=== PATIENT | male | born 1975 | race African-American/Black ===

== ENCOUNTER 2017-09-01 13:49 | Emergency (ER) | payer MEDICARE ==
[2017-09-01 14:23] LABS: #Eosinphils 0.1 thou/uL (0.0-0.7); #Lymphocytes 0.9 thou/uL (1.20-3.40); #Monocytes 0.5 thou/uL (0.11-0.59); #Neutrophils 11.6 thou/uL (1.40-6.50); %Basophils 0.3 % (0.0-1.0); %Eosinophils 0.6 % (0.0-10.0); %Lymphocytes 7.1 % (21.0-51.0); %Monocytes 3.7 % (0.0-10.0); Hematocrit 42.6 % (42.0-52.0); Mean Platelet Volume 7.2 fL (7.4-10.4); White Blood Cell (WBC) Count 13.2 thou/uL (4.8-10.8)
[2017-09-01 14:50] LABS: Troponin I Less than 0.010 ng/mL (< 0.028)
[2017-09-01 14:53] LABS: ALT (SGPT) 16 U/L (8-55); AST (SGOT) 32 U/L (5-34); Alkaline Phosphatase 132 U/L (40-150); Anion Gap 17 mmol/L (10-20); BUN (Urea Nitrogen) 11 mg/dL (8.9-20.6); Bilirubin, Total 0.5 mg/dL (0.2-1.2); Calc. Creatinine Clearance 0 mL/min (70-130); Calcium 10.1 mg/dL (7.8-10.44); Carbon Dioxide 18 mmol/L (22-29); Chloride 103 mmol/L (98-107); Estimated GFR-MDRD 84; Globulin 5.2 g/dL (2.4-3.5); Protein, Total 9.6 g/dL (6.0-8.3)
--- NOTE | 2017-09-01 15:59 | RAD ---
AP VIEW CHEST: HISTORY: Cough. COMPARISON: 03/21/2014 TECHNIQUE: AP view chest obtained on 09/01/2017. FINDINGS: AP view chest demonstrates extensive lung parenchymal scarring with volume loss in the upper lobes an d upward migration of the hilar regions due to the lung parenchymal scarring in the upper lobes. Thi s may represent a possible inflammatory process and infection, including possibly tuberculosis or aty pical microbacteria. Areas of lung parenchymal in the upper lobes have undergone further cavitary and fibrotic changes, wh en compared to the previous exam from 2013. They have not significantly changed when compared to the previous radiograph of the chest from 12/16/2016. IMPRESSION: Lung parenchymal fibrotic changes, compatible with extensive scarring and upper lobe volume loss. No evidence of acute air space opacities seen. POS: [facility]
[2017-09-01] MEDS ORDERED: Lorazepam 2 MG/ML VIAL ONE (17:18)
--- NOTE | 2017-09-01 18:47 | CT ---
CT ANGIOGRAM CHEST INCLUDING 3D RENDERIN09/01/17 HISTORY: 41-year-old male with chest pain and cough. COMPARISON: 04/10/17. Again noted is very extensive bilateral upper lobe chronic lung changes with volume loss and cavity f ormation including some soft tissue density within several cavities bilaterally, but overall appearan ce is stable. There is no significant CT evidence for acute pulmonary embolism. Blood flow into the u pper lung zones bilaterally is decreased but stable from the extensive chronic lung change. No signi ficant acute process in the abdomen. No pleural effusion or pericardial effusion. IMPRESSION: No significant CT evidence for acute pulmonary embolism. Very severe chronic scarring and bullous mathew nges and cavity formation in both right and left upper lobes but overall stable from the prior study. No evidence for aortic aneurysm or dissection. No significant acute process. POS: [facility]
== END 2017-09-01 19:28 | disposition home or self-care (01) ==
LOC: ERS 13:49
DX: J18.9 Pneumonia, unspecified organism (principal); J45.909 Unspecified asthma, uncomplicated; F41.9 Anxiety disorder, unspecified; Z79.899 Other long term (current) drug therapy
CPT/HCPCS: 71010; 71275; 80053; 82553; 84484; 85025; 85379; 93005; 94640; 96361; 96374; J2060; J7620

== ENCOUNTER 2017-09-08 10:29 | Emergency (ER) | payer MEDICARE ==
--- NOTE | 2017-09-08 11:37 | RAD ---
PA AND LATERAL VIEWS CHEST: HISTORY: Cough. FINDINGS/IMPRESSION: Comparison is made with the exam of 09/01/2017. The heart size is stable. Chronic changes in the lung callaway are again seen bilaterally. Cavitary l esions and intracavitary mass in the left upper lobe are again noted. No large pleural effusions are identified. POS: [facility]
[2017-09-08 12:00] LABS: #Lymphocytes 0.8 thou/uL (1.20-3.40); #Monocytes 0.9 thou/uL (0.11-0.59); #Neutrophils 6.8 thou/uL (1.40-6.50); %Basophils 0.4 % (0.0-1.0); %Eosinophils 0.4 % (0.0-10.0); %Lymphocytes 9.8 % (21.0-51.0); %Monocytes 10.5 % (0.0-10.0); %Neutrophils 79.1 % (42.0-75.0); Hemoglobin 14.4 g/dL (14.0-18.0); Mean Corpuscular HGB CONC 34.3 g/dL (32.0-36.0); Mean Corpuscular Hemoglobin 26.5 pg (27.0-31.0); Mean Corpuscular Volume 77.3 fl (80.0-94.0); Mean Platelet Volume 7.6 fL (7.4-10.4); Platelet Count 403 thou/uL (130-400); RBC Distribution Width 14.7 % (11.5-14.5); Red Blood Cell (RBC) Count 5.43 mill/uL (4.70-6.10); White Blood Cell (WBC) Count 8.6 thou/uL (4.8-10.8)
[2017-09-08 12:23] LABS: ALT (SGPT) 26 U/L (8-55); AST (SGOT) 37 U/L (5-34); Albumin 4.1 g/dL (3.5-5.0); Alkaline Phosphatase 121 U/L (40-150); Anion Gap 16 mmol/L (10-20); BUN (Urea Nitrogen) 11 mg/dL (8.9-20.6); Bilirubin, Total 0.3 mg/dL (0.2-1.2); Calc. Creatinine Clearance 0 mL/min (70-130); Calcium 10.1 mg/dL (7.8-10.44); Carbon Dioxide 22 mmol/L (22-29); Chloride 98 mmol/L (98-107); Estimated GFR-MDRD Greater than 90; Globulin 4.8 g/dL (2.4-3.5); Glucose 131 mg/dL (70-105); Potassium 3.4 mmol/L (3.5-5.1); Protein, Total 8.9 g/dL (6.0-8.3); Sodium 133 mmol/L (136-145)
== END 2017-09-08 13:25 | disposition home or self-care (01) ==
LOC: ERS 10:29
DX: J10.1 Influenza due to other identified influenza virus with other respiratory manifestations (principal); J45.909 Unspecified asthma, uncomplicated; D86.9 Sarcoidosis, unspecified; F41.9 Anxiety disorder, unspecified; Z79.52 Long term (current) use of systemic steroids
CPT/HCPCS: 71020; 80053; 85025; 96360

== ENCOUNTER 2017-10-04 13:10 | Emergency (ER) | payer MEDICARE ==
[2017-10-04 14:21] LABS: Hemoglobin 15.1 g/dL (14.0-18.0); Mean Corpuscular HGB CONC 34.3 g/dL (32.0-36.0); Mean Corpuscular Hemoglobin 27.2 pg (27.0-31.0); Mean Corpuscular Volume 79.4 fl (80.0-94.0); Mean Platelet Volume 8.1 fL (7.4-10.4); Platelet Count 392 thou/uL (130-400); RBC Distribution Width 15.9 % (11.5-14.5); Red Blood Cell (RBC) Count 5.53 mill/uL (4.70-6.10); White Blood Cell (WBC) Count 14.2 thou/uL (4.8-10.8)
[2017-10-04 14:34] LABS: Anisocytosis SLIGHT = 6-15 cells (100X) (0-5/hpf); Band 2 % (5-11); Eosinophils 4 % (0-10); Large Platelets SLIGHT; Lymphocytes 1 % (21-51); MDiff Complete? YES; Monocytes 3 % (0-10); Neutrophil 87 % (42-75); PLT Morphology Comment Appears Adequate; Reactive Lymphocytes 1 % (0-10); Target Cells SLIGHT = 2-5 cells (100X) (0-1/hpf)
[2017-10-04 14:38] LABS: ALT (SGPT) 12 U/L (8-55); AST (SGOT) 16 U/L (5-34); Albumin 4.3 g/dL (3.5-5.0); Alkaline Phosphatase 124 U/L (40-150); Anion Gap 17 mmol/L (10-20); BUN (Urea Nitrogen) 10 mg/dL (8.9-20.6); Bilirubin, Total 0.8 mg/dL (0.2-1.2); Calc. Creatinine Clearance 0 mL/min (70-130); Calcium 10.1 mg/dL (7.8-10.44); Carbon Dioxide 21 mmol/L (22-29); Chloride 99 mmol/L (98-107); Estimated GFR-MDRD Greater than 90; Globulin 4.2 g/dL (2.4-3.5); Glucose 132 mg/dL (70-105); Potassium 4.1 mmol/L (3.5-5.1); Protein, Total 8.5 g/dL (6.0-8.3); Sodium 133 mmol/L (136-145)
[2017-10-04 14:44] LABS: CKMB 0.4 ng/mL (0-6.6); Troponin I Less than 0.010 ng/mL (< 0.028)
--- NOTE | 2017-10-04 14:50 | RAD ---
CHEST ONE VIEWS: History: Palpitations. Comparison: 09-08-17 FINDINGS: Cardiac silhouette is magnified by projection. Left pleural fluid layers more than on the previous st udy due to upright positioning. Extensive scarring and bullous formation at the upper lobes is again demonstrated. Mediastinum is midline. monitoring analyst leads overlie the chest. IMPRESSION: 1. Extensive parenchymal scarring, left pleural fluid, and other findings are stable. POS: [facility]
== END 2017-10-04 15:41 | disposition home or self-care (01) ==
LOC: ERS 13:10
DX: F41.9 Anxiety disorder, unspecified (principal); D86.9 Sarcoidosis, unspecified; R00.2 Palpitations; J45.909 Unspecified asthma, uncomplicated; Z79.52 Long term (current) use of systemic steroids
CPT/HCPCS: 71045; 80053; 82553; 84484; 85025; 93005; 96360

== ENCOUNTER 2017-11-05 20:15 | Inpatient (IN) | payer MEDICARE ==
[~2017-11-05 20:15] MED LIST: ISOVUE-370 76%-LOCM 1 ML ONE
--- NOTE | 2017-11-05 23:06 | RAD ---
PORTABLE CHEST: Date: 11/05/17 HISTORY: Cough. COMPARISON: 10/04/17. FINDINGS: The parenchymal stranding and scarring in the upper lungs radiating from the suprahilar regions bilat erally appear stable. Prior CT chest from 09/01/17 described scarring and bullous changes with cavita ry formation in both upper lobes. Evidence of small bilateral effusions, similar to the prior exam. IMPRESSION: Bilateral upper lobe opacities are seen, consistent with the chronic changes previously described. Th ere may be increased density surrounding the right upper lung opacity which could represent a superim posed inflammatory infiltrate. Suggest short-term follow-up with treatment. POS: [facility]
[2017-11-05 23:22] LABS: Bilirubin Negative (Negative); Blood, Urine Negative (Negative); Clarity CLEAR (Clear); Glucose, Urine (Dipstick) Negative (Negative); Leukocyte Negative (Negative); Nitrite Negative (Negative); Protein, Urine (Dipstick) Negative (Neg-Trace); Urobilinogen 0.2 mg/dL (0.2-1.0)
[2017-11-05 23:30] LABS: Digoxin Less than 0.15 ng/mL (0.8-2.0)
[2017-11-05 23:31] LABS: Eosinophils 1 % (0-10); Hemoglobin 11.9 g/dL (14.0-18.0); Lymphocytes 10 % (21-51); MDiff Complete? YES; Mean Corpuscular HGB CONC 34.2 g/dL (32.0-36.0); Mean Corpuscular Volume 79.1 fl (80.0-94.0); Mean Platelet Volume 7.7 fL (7.4-10.4); Microcytosis SLIGHT = 6-15 cells (100X) (0-5/hpf); Monocytes 4 % (0-10); Neutrophil 84 % (42-75); PLT Morphology Comment Appears Increased; Platelet Count 428 thou/uL (130-400); RBC Distribution Width 15.3 % (11.5-14.5); Reactive Lymphocytes 1 % (0-10)
[2017-11-05 23:32] LABS: ALT (SGPT) 14 U/L (8-55); AST (SGOT) 16 U/L (5-34); Albumin 3.6 g/dL (3.5-5.0); Alkaline Phosphatase 143 U/L (40-150); Anion Gap 17 mmol/L (10-20); BUN (Urea Nitrogen) 8 mg/dL (8.9-20.6); Bilirubin, Total 1.1 mg/dL (0.2-1.2); CK (CPK) 32 U/L (30-200); Calc. Creatinine Clearance 0 mL/min (70-130); Calcium 9.4 mg/dL (7.8-10.44); Carbon Dioxide 20 mmol/L (22-29); Chloride 100 mmol/L (98-107); Estimated GFR-MDRD Greater than 90; Globulin 4.3 g/dL (2.4-3.5); Glucose 91 mg/dL (70-105); Lipase 4 U/L (8-78); Magnesium 1.8 mg/dL (1.6-2.6); Potassium 3.3 mmol/L (3.5-5.1); Protein, Total 7.9 g/dL (6.0-8.3); Sodium 134 mmol/L (136-145)
[2017-11-05 23:36] LABS: CKMB 0.3 ng/mL (0-6.6); Troponin I Less than 0.010 ng/mL (< 0.028)
[2017-11-05 23:49] LABS: Free T4 (Free Thyroxine) 1.68 ng/dL (0.70-1.48)
[2017-11-06 00:01] LABS: HIV (1/2) Antibody/Antigen Non-Reactive (NonReactive); HIV 1/2 INDEX 0.11 S/CO (<1.00)
[2017-11-06] MEDS ORDERED: Lorazepam 2 MG/ML VIAL ONE (01:13)
[2017-11-06] MEDS ORDERED: Sodium Chloride 0.45% 1,000 ML IV SCH (02:31)
[2017-11-06] MEDS ORDERED: Ondansetron HCl/PF 4 MG/2 ML Vial IVP PRN ×2 (02:31→04:00)
[2017-11-06] MEDS ORDERED: Ondansetron ODT 4 MG TAB SL PRN (02:31)
[2017-11-06] MEDS ORDERED: Lorazepam 2 MG/ML VIAL SLOW IVP PRN (02:32)
[2017-11-06] MEDS ORDERED: Ondansetron ODT 4 MG TAB PO PRN (04:00)
--- NOTE | 2017-11-06 04:25 | PDOC.FPRHP ---
- History of Present Illness Chief Complaint: Congestion, low grade fever, cough History of Present Illness: Pt seen @ 0400 11/06 Pt is 42 yo M with PMH of sarcoidosis who presents with cc of low grade fevers, congestion, productive cough, weakness and recent weight loss. The pt reports the cough, congestion and low grade fevers have been present for the last 2 days and have been progressively worsening. He has tried taking mucinex and flonase w/o relief of symptoms. He had one episode of blood tinged sputum throughout this time. Denies cp, sob, plpeuritic pain, nvdc, arthritis/ arthralgias. Regarding the weight loss and weakness, he preports approx 30 pounds of weight loss over the last 2 months, but on review of clinic records the pt has lost approx 15 lbs. Additionally, pt reports he has always had trouble keeping weight on and was previously on an appetite stimulation medication which was stopped approx 1 month ago. Associates weight loss with chronically low appetite. Regarding the sarcoid, pt sees Dr. Mascorro for management of disease and is on chronic steroids, but reports he has not been taking them over the last month 2/ 2 medication side effects. He had a CT done in August which showed cavitary lesion in the ATUL, and per ER doc, on this admission there was also mention of caivtary lesion on imaging. Quantiferon gold pending, pt on airborne precautions. - Allergies/Adverse Reactions Allergies Allergy/AdvReac Type Severity Reaction Status Date / Time No Known Allergies Allergy Verified 11/06/17 02:46 - Home Medications Medication Instructions Recorded Confirmed Type Albuterol Sulfate [Proair HFA] 1 puff INH Q4HR PRN 11/06/17 11/06/17 History Ipratropium/Albuterol Sulfate 3 ml NEB Q4H PRN 11/06/17 11/06/17 History [Duoneb] Mometasone/Formoterol 100/5 1 puff INH Q4H PRN 11/06/17 11/06/17 History [Dulera 100 Mcg/5 Mcg Inhaler] - History PMHx:sarcoidosis PSHx: skin graft FHx:None Social: Former smoker, no alcohol, no drugs - Vital signs BP: 99/54 HR: 114 RR: 22 Tmax: 98.4 Pox: 92% on RA Wt: 41kg - Physical Exam Constitutional: NAD, awake, alert and oriented HEENT: normocephalic and atraumatic, PERRLA, EOMI, conjunctiva clear, no scleral icterus, TM's clear and intact, grossly normal hearing, MMM, oropharynx clear Neck: supple, trachea midline, no LAD, no thyromegaly Chest: no-tender to palpation Heart: RRR, normal S1/S2, no murmurs/rubs/gallops, pulses present Lungs: CTAB, no respiratory distress, good air movement, no rales/rhonchi, no wheezing, no retractions Abdomen: soft, non-tender, bowel sounds present, no masses/distention Skin: capillary refill <2 seconds FMR H&P: Results - Labs Result Diagrams: 11/06/17 06:07 11/05/17 22:55 Lab results: WBC 17.0 thou/uL (4.8-10.8) H 11/05/17 22:55 Hgb 11.9 g/dL (14.0-18.0) L 11/05/17 22:55 Hct 34.8 % (42.0-52.0) L 11/05/17 22:55 MCV 79.1 fl (80.0-94.0) L 11/05/17 22:55 Plt Count 428 thou/uL (130-400) H 11/05/17 22:55 Sodium 134 mmol/L (136-145) L 11/05/17 22:55 Potassium 3.3 mmol/L (3.5-5.1) L 11/05/17 22:55 Chloride 100 mmol/L (98-107) 11/05/17 22:55 Carbon Dioxide 20 mmol/L (22-29) L 11/05/17 22:55 BUN 8 mg/dL (8.9-20.6) L 11/05/17 22:55 Creatinine 0.90 mg/dL (0.6-1.3) 11/05/17 22:55 Glucose 91 mg/dL (70-105) 11/05/17 22:55 Lactic Acid 0.8 mmol/L (0.5-2.2) 11/05/17 22:55 Calcium 9.4 mg/dL (7.8-10.44) 11/05/17 22:55 Total Bilirubin 1.1 mg/dL (0.2-1.2) 11/05/17 22:55 AST 16 U/L (5-34) 11/05/17 22:55 ALT 14 U/L (8-55) 11/05/17 22:55 Alkaline Phosphatase 143 U/L (40-150) 11/05/17 22:55 Creatine Kinase 32 U/L (30-200) 11/05/17 22:55 CK-MB (CK-2) 0.3 ng/mL (0-6.6) 11/05/17 22:55 B-Natriuretic Peptide Less than 10.0 pg/mL (0-100) 11/05/17 22:56 Serum Total Protein 7.9 g/dL (6.0-8.3) 11/05/17 22:55 Albumin 3.6 g/dL (3.5-5.0) 11/05/17 22:55 Lipase 4 U/L (8-78) L 11/05/17 22:55 Urine Ketones 40 mg/dL (Negative) H 11/05/17 23:18 Urine Blood Negative (Negative) 11/05/17 23:18 Urine Nitrite Negative (Negative) 11/05/17 23:18 Ur Leukocyte Esterase Negative (Negative) 11/05/17 23:18 - EKG Interpretation EKG: sinus tach, rt atrial enlargement FMR H&P: A/P - Problem List (1) Sepsis due to pneumonia Current Visit: Yes Status: Acute Code(s): J18.9 - PNEUMONIA, UNSPECIFIED ORGANISM; A41.9 - SEPSIS, UNSPECIFIED ORGANISM (2) Sarcoidosis Current Visit: Yes Status: Acute Code(s): D86.9 - SARCOIDOSIS, UNSPECIFIED (3) Hypokalemia Current Visit: Yes Status: Acute Code(s): E87.6 - HYPOKALEMIA (4) Leukocytosis Current Visit: No Status: Acute Code(s): D72.829 - ELEVATED WHITE BLOOD CELL COUNT, UNSPECIFIED (5) Pneumonia Current Visit: No Status: Acute Code(s): J18.9 - PNEUMONIA, UNSPECIFIED ORGANISM (6) Cachexia Current Visit: No Status: Chronic Code(s): R64 - CACHEXIA - Plan 1. Sepsis 2/2 PNA vs. TB vs. other infectious etiology: Patient with elevated HR , RR and leukocytosis of 17. CXR shows chronic BL upper lobe opacities with inc density at RUL opacity. In addition, CTA done due to +d-dimer and per ED physician it showed upper lobe cavitation and concern for TB. Final report is pending. Previous CT on 08/2017 showed BL cavity formation at upper lobes, but not sure if this has worsened or not. Given Levaquin and Rocephin in the ED. Will treat as PNA with rocephin and azithromycin as TB is low on the differential. He does have RF including immunosuppression with sarcoidosis and chronic steroids, but denies any recent travel, IV drug use, exposure to TB. Was tested negative for TB in 2014. QuantGold pending. Obtain procalcitonin. 2. Hypokalemia: replenish and monitor. 3. Sarcoidosis: followed by Dr. Mascorro of pulmonology. Cont home inhalers. On chronic steroids but states he hasnt been taking them for the past month. 4. Cachexia: consider re-starting megace as he has lost about 15lbs over the past 2mo. Provide dietary supplementation while in the hospital. 5. Diet: regular 6. PPx: SCDs 7. Code Status: Full Disposition/LOS: stable, >/= 2 days. Symptomatic meds will be provided. FMR H&P: Upper Level - Pertinent history Patient is a 42yo AAM with PMHx of Sarcoidosis who presents with 2d hx of congestion, cough and low grade fevers. Temp as high as 100.1 at home. Productive cough with yellow phlegm and reports occasional hemoptysis. Has been taking mucinex and Flonase at home. States he came to the ED because he was told by his doctors that if he starts coughing and fevering he should go to the ED. Also reports a 30lb wt loss over the past 2mo and was previously on appetite stimulant medication but was told to stop it about 2mo ago. He has hx of dec appetite and looking over at our clinic records he has lost about 15lbs over the past 2mo since stopping med. Denies any shortness of breath, wheezing, chest pain, N/V. Patient is followed by Dr. Mascorro for his sarcoidosis and is on chronic steroids though he states he hasnt been taking them for about 1mo now. - Plan Date/Time: 11/06/17 [id number] Jimmy Gunderson, have evaluated this patient and agree with findings/plan as outlined by internal communications specialist resident. Pertinent changes/additions are listed here. 1. Sepsis 2/2 PNA vs. TB vs. other infectious etiology: Patient with elevated HR , RR and leukocytosis of 17. CXR shows chronic BL upper lobe opacities with inc density at RUL opacity. In addition, CTA done due to +d-dimer and per ED physician it showed upper lobe cavitation and concern for TB. Final report is pending. Previous CT on 08/2017 showed BL cavity formation at upper lobes, but not sure if this has worsened or not. Given Levaquin and Rocephin in the ED. Will treat as PNA with rocephin and azithromycin as TB is low on the differential. He does have RF including immunosuppression with sarcoidosis and chronic steroids, but denies any recent travel, IV drug use, exposure to TB. Was tested negative for TB in 2014. QuantGold pending. Obtain procalcitonin. 2. Hypokalemia: replenish and monitor. 3. Sarcoidosis: followed by Dr. Mascorro of pulmonology. Cont home inhalers. On chronic steroids but states he hasnt been taking them for the past month. 4. Cachexia: consider re-starting megace as he has lost about 15lbs over the past 2mo. Provide dietary supplementation while in the hospital. 5. Diet: regular 6. PPx: SCDs 7. Code Status: Full Attending Addendum - Attending Addendum Date/Time: 11/06/17 152 I personally evaluated the patient and discussed the management with Dr. Segovia and Dr Kearns. The H&P has been reviewed by me and it is repeated by me. I agree with the History, Examination, Assessment and Plan documented above with any addition or exceptions noted below. We are also checking an abdominal CT scan to look for other causes of weight loss such as malignancy, and his thyroid function.
[2017-11-06] MEDS: Sodium Chloride 0.9% 1,000 ML IV SCH ×2 (04:53→14:51)
[2017-11-06 07:01] LABS: T4 9.4 ug/dL (4.87-11.72); Thyroid Stimulating Hormone 0.8511 uIU/mL (0.35-4.94)
[2017-11-06] MEDS ORDERED: Iopamidol 370 76% 75 ML VIAL FS ONE (07:44)
[2017-11-06] MEDS ORDERED: Potassium Chloride 20 MEQ TAB PO SCH (07:45)
[2017-11-06 07:56] LABS: Legionella Urinary Ag Negative (Negative); Strep pneumo Urine Ag NEGATIVE (NEGATIVE)
--- NOTE | 2017-11-06 07:57 | CT ---
PRELIMINARY REPORT/[facility]/EMERGENCY AFTER HOURS PROCEDURE: EXAM: CT Angiography Chest With Intravenous Contrast EXAM DATE/TIME: 11/06/2017 12:02 AM CLINICAL HISTORY: 42 years old, male; Pain and signs and symptoms; Cough; Symptoms not specified; Chest pain; Patient H X: Er 12; Chest pain, cough; Congestion x 1 weeks, reports low grade fever x 2 days. Tachycardic, d-d binu 2.30 TECHNIQUE: Axial computed tomographic angiography images of the chest with intravenous contrast using pulmonary embolism protocol. MIP reconstructed images were created and reviewed. COMPARISON: No relevant prior studies available. FINDINGS: Pulmonary arteries: No evidence of pulmonary embolism. Aorta: No acute findings. No thoracic aortic aneurysm. Lungs: Severe bilateral upper lobe bronchiectasis with multiple large air-filled cavities in the uppe r lobes, some containing some debris and fluid, concerning for superimposed infection. No mass. Pleural space: Unremarkable. No significant effusion. No pneumothorax. Heart: Unremarkable. No cardiomegaly. No significant pericardial effusion. No evidence of RV dysfunct ion. Bones/joints: No acute fracture. No dislocation. Soft tissues: Unremarkable. Lymph nodes: Unremarkable. No enlarged lymph nodes. IMPRESSION: No acute pulmonary embolism. Severe upper lobe bronchiectasis and bilateral upper lobe cavity formati on with debris and fluid suggesting superimposed infection. Differential diagnosis includes cystic fi brosis, TB or other mycobacterial infections, allergic bronchopulmonary aspergillosis, chronic hypersensitivity pneumonitis. Thank you for allowing us to participate in the care of your patient. Dictated and Authenticated by: Zeynep Rizo MD 11/06/2017 12:22 AM Central Time ([place] & [place]) FINAL REPORT CT ANGIOGRAM CHEST WITH CONTRAST: Date: 11/05/17 HISTORY: Chest pain. Cough and congestion. COMPARISON: CT of the chest dated 09/01/17. TECHNIQUE: CT angiogram of the chest performed with intravenous administration of contrast. 3D rendering provide d. FINDINGS/IMPRESSION: The findings and impression are concordant with the preliminary report by [facility]. Within a right upper lobe cavitation is a soft tissue nodule which may represent a mycetoma. Same is true for left upper l obe cavitation. There is dilatation of the pulmonary arterial system suggesting pulmonary arterial hy pertension. There is dilatation of the tracheobronchial system. There is confluence of mildly prominent subcarina l lymph nodes. There is also mild circumferential wall thickening of the esophagus. POS: [facility]
[2017-11-06] MEDS: Famotidine 20 MG TAB PO SCH ×2 (08:05→19:41)
[2017-11-06 11:35] LABS: Anisocytosis SLIGHT = 6-15 cells (100X) (0-5/hpf); Hemoglobin 10.8 g/dL (14.0-18.0); Lymphocytes 4 % (21-51); MDiff Complete? YES; Mean Corpuscular HGB CONC 33.1 g/dL (32.0-36.0); Mean Corpuscular Hemoglobin 26.8 pg (27.0-31.0); Mean Corpuscular Volume 80.9 fl (80.0-94.0); Mean Platelet Volume 8.2 fL (7.4-10.4); Monocytes 3 % (0-10); Neutrophil 93 % (42-75); PLT Morphology Comment Appears Increased; Platelet Count 421 thou/uL (130-400); RBC Distribution Width 15.7 % (11.5-14.5); Red Blood Cell (RBC) Count 4.03 mill/uL (4.70-6.10); Target Cells SLIGHT = 2-5 cells (100X) (0-1/hpf); White Blood Cell (WBC) Count 13.2 thou/uL (4.8-10.8)
--- NOTE | 2017-11-06 14:53 | CT ---
CT ABDOMEN AND PELVIS WITH CONTRAST: Date: 11/06/17 HISTORY: Abdominal pain. Cachexia. Decreased appetite. History of lung disease. FINDINGS: There is small volume free fluid in the pelvis. The gallbladder is unremarkable. There is an abnormal appearance of the spleen with numerous hypodensities through it. Multiple low at tenuation levi hepatis lymph nodes. Aortoiliac contour is nonaneurysmal. IMPRESSION: There are numerous hypodensities of the spleen with multiple hypodense levi hepatis lymph nodes. Fin dings can be seen with splenic microabscesses with a low attenuation adenopathy concerning also for t uberculosis. Adenopathy can also be seen with metastatic disease, as well as lymphoma and celiac spru e. At this point, splenic microabscesses with tuberculosis and tuberculous involvement of levi hepat is lymph nodes and a few small retroperitoneal lymph nodes is felt most likely. Of note, sarcoidosis can have a similar appearance in the spleen. Charisma, the nurse taking care of the patient, was notified of the findings via telephone at 1210 hours . CODE CR. POS: [facility]
[2017-11-06] MEDS: Acetaminophen 325 MG TAB PO PRN (19:41)
--- NOTE | 2017-11-06 19:52 | RAD ---
ADULT BONE SURVEY: History: Cystic lung and splenic disease. Evaluate for infection. FINDINGS: Very aggressive osseous erosions. No lytic lesions or sclerotic lesions of the bones are evident. Sma ll metallic sphere overlies the tibiofibular interspace of the right lower leg on the frontal view. L ateral view is not included. Extensive parenchymal lung disease is better detailed on recent CT chest. IMPRESSION: No acute osseous abnormalities are demonstrated. POS: [facility]
--- NOTE | 2017-11-06 21:48 | CON ---
DATE OF CONSULTATION: 11/06/2017 REASON FOR CONSULTATION: Lung and splenic lesions. HISTORY OF PRESENT ILLNESS: A 42-year-old whom I had seen in 03/2014 when he presented with a history of prior episodes of sinusitis for which he took over- the-counter medication. Basically, he was admitted with altered mental status, tachypnea, hypoxemia which led to eventual intubation. Patient had some bloody drainage from the endotracheal tube. Initial white cell count was 13,000, platelets 394 with 19% bands. ABG with a pH 7.23, pCO2 of 52, and pO2 of 404, bilirubin 0.5. AST and ALT normal. Urinalysis with 300 protein. Creatinine was normal. Hepatitis serology, HIV and RPR were negative. A CT of abdomen and pelvis and chest showed extensive bilateral cavitary lung disease with areas of ground-glass opacity as well. The large cavities were concentrated in the upper lower segments of right and left upper lobes. There was evidence of splenomegaly and numerable areas of hypodensity within the spleen and similar heterogeneous enhancement pattern of the liver. The patient had extensive evaluation with numerous samples from respiratory secretions negative for Mycobacterium tuberculosis including a bronchoscopy specimen. We also submitted testing for various fungal pathogens and all were negative including coccidioides immitis, Histoplasma capsulatum. The Aspergillus serology was positive and he did have elevation in the Fungitell assay which was borderline high. The patient had serum protein electrophoresis which showed positive elevation in the gamma protein with an M-spike of 0.5. The IgG was elevated, IgM was within normal limits. All the vasculitis workup was negative and tuberculosis QuantiFERON test was indeterminate. The patient was discharged with diagnosis of pulmonary hemorrhage, hypotension, leukocytosis and fibrocavitary lung disease, community-acquired pneumonia and the concern for sarcoidosis. In 08/2014, he was readmitted and with wasting syndrome and dyspnea, was discharged on prednisone and antimicrobial therapy. In 03/2015, he came again with exacerbation of his respiratory problems with hyperleukocytosis and was given prednisone again, antimicrobials and discharged. Similar findings in 11/2015 and 11/2016. At this time, he comes in again with a similar presentation with worsening dyspnea, cough with some small amounts of blood and mucoid sputum production. He has had some progressive weight loss as well. Initial findings included a white cell count 17,000, hemoglobin 11, platelets 428, 84% neutrophils. His initial chemistry values with sodium 134, creatinine 0.9. Liver profile normal. Albumin 3.6, globulin 4.3. TSH was 1.01. Urinalysis normal at this time. Repeat a strep pneumo antigen Legionella pneumophila negative and the HIV negative as well. The CT of chest again showed multiple cystic lesions, some bronchiectasis. One of the cavities has what appears to be a fungus ball. There was dilatation of tracheobronchial system, some mildly prominent subcarinal lymph nodes and patient had a CT of the abdomen and pelvis with numerous hypodensities of the spleen and hypodense levi hepatis lymph nodes. Currently, Mr. Ellison is coughing intermittently. He has some headaches. No visual symptoms, sore throat, odynophagia or dysphagia. Moderate dyspnea, no chest pain, no abdominal pain, no genitourinary symptoms, some diarrhea. After taking the contrast for CT scan, no appendicular structure symptoms or neurological symptoms. PAST MEDICAL HISTORY: Sinusitis, cystic lung disease, bronchiectasis, cystic splenic disease, cystic liver disease. PAST SURGICAL HISTORY: Negative except for bronchoscopy. Extensive workup for tuberculosis in 2014, which was all negative including bronchoscopic specimen. His QuantiFERON was indeterminate because patient was immunosuppressed and extensive workup for fungal pathogens is negative except for borderline elevated Aspergillus antigen. ALLERGIES: None. CURRENT MEDICATIONS: Proventil, Tylenol, DuoNeb, azithromycin, ceftriaxone, Pepcid, mometasone, ondansetron. FAMILY HISTORY: One brother committed suicide and one sister who had a splenectomy during for low blood counts reportedly, also history of diabetes and some form of cancer. SOCIAL HISTORY: Used to work for a [employer] company and had smoked in the past, but quit when he got sick in 2014. PHYSICAL EXAMINATION: VITAL SIGNS: T-max 99.6, blood pressure 114/72, pulse 120, respirations 18-24, O2 saturation 95%. SKIN: Shows one area of hyperpigmented scar from a previous skin lesion in the right arm, peripheral IV access. Does not have a Medina catheter and is voiding spontaneously. No lymphadenopathy palpable at this time. HEENT: Ocular movements are conjugate. Sclerae white. Oral cavity normal. NECK: Supple. LUNGS: Lungs are symmetric. Scattered rhonchi and crackles in both lung callaway. HEART: S1, S2, regular rate. No S3 or S4. ABDOMEN: Soft and question of splenomegaly and hepatomegaly. No bladder distention, no tenderness, no distention or ascites. EXTREMITIES: No joint inflammatory activity. Pulses are 1+ in dorsalis pedis. NEUROLOGIC: Cognitive function appears to be intact. LABORATORY DATA: Latest labs, white cell count 13,000, hemoglobin 10, platelets 421 with 92% neutrophils. Other findings as noted above. ASSESSMENT: 1. Restricted growth. 2. Chronic pulmonary cavitary/cystic disease, areas of ground-glass opacities. 3. Splenic and hepatic cystic lesions, multiple. DISCUSSION: The differential diagnosis includes congenital disorder, for example Jimmy Pick's disease which can be associated with this kind of presentation, although usually it will manifest much earlier. Some variants of LOSS CONTROL MANAGER can present later in life. 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 Regarding the possibility of tuberculosis, I believe the case has been worked up properly and that has been effectively ruled out with a very extensive evaluation in 2014. It is unlikely that patient has active tuberculosis causing this chronic illness since 2014 with extensive cavitary disease with older cultures negative from multiple samples including bronchoscopic samples. I do not think it is a fungal illness either in view of the negative findings in the previous work up, although pt does have evidence of fungal colonization of one of the cavities with fungus ball formation. The hypothesis of sarcoidosis has been brought up. This certainly is a very atypical case for Sarcoidosis, with its non-caseous granuloma formation. The extent of lung involvement with cavitation, the multiple cysts in spleen, appear quite atypical for Sarcoidosis and I think that would not be a likely diagnosis. I will order a bone series to see if he has any cystic transformation in the bones as well which can be seen in the Langerhans histiocytosis at least some forms of it. It seems like further establishment of a precise tissue diagnosis would be important instead of empiric treatment. The specific areas of possible biopsy would include the LN in abdomen area, the spleen. The lung would be a harder target in view of risk. Bone marrow can be involved in some of the above possibilities and may be considered depending on bone series results. MTDD
[2017-11-07] MEDS: cefTRIAXone\\ROCEPHIN 1 GM, Syringe 0.4 ML in Sterile Water 9.6 ML SLOW IVP SCH (01:57)
[2017-11-07] MEDS ORDERED: cefTRIAXone\\ROCEPHIN 1 GM in Sodium Chloride 0.9% 100 ML IVPB SCH (02:00)
[2017-11-07] MEDS: Azithromycin 500 MG in Sodium Chloride 0.9% 250 ML 250 ML IVPB SCH (02:05)
[2017-11-07 05:18] LABS: #Eosinphils 0.6 thou/uL (0.0-0.7); #Lymphocytes 1.5 thou/uL (1.20-3.40); #Monocytes 1.2 thou/uL (0.11-0.59); #Neutrophils 6.4 thou/uL (1.40-6.50); %Basophils 0.4 % (0.0-1.0); %Eosinophils 5.9 % (0.0-10.0); %Lymphocytes 15.7 % (21.0-51.0); %Monocytes 12.4 % (0.0-10.0); %Neutrophils 65.6 % (42.0-75.0); Hemoglobin 10.5 g/dL (14.0-18.0); Mean Corpuscular HGB CONC 32.8 g/dL (32.0-36.0); Mean Corpuscular Hemoglobin 25.8 pg (27.0-31.0); Mean Corpuscular Volume 78.6 fl (80.0-94.0); Mean Platelet Volume 7.6 fL (7.4-10.4); Platelet Count 407 thou/uL (130-400); RBC Distribution Width 15.2 % (11.5-14.5); Red Blood Cell (RBC) Count 4.06 mill/uL (4.70-6.10); White Blood Cell (WBC) Count 9.7 thou/uL (4.8-10.8)
[2017-11-07 05:37] LABS: Anion Gap 13 mmol/L (10-20); BUN (Urea Nitrogen) 6 mg/dL (8.9-20.6); Calc. Creatinine Clearance 74 mL/min (70-130); Calcium 9.1 mg/dL (7.8-10.44); Carbon Dioxide 25 mmol/L (22-29); Chloride 104 mmol/L (98-107); Estimated GFR-MDRD Greater than 90; Glucose 97 mg/dL (70-105); Potassium 3.6 mmol/L (3.5-5.1); Sodium 138 mmol/L (136-145)
[2017-11-07] MEDS: Mometasone/Formoterol 120 PUFF INHALER INH PRN (07:51)
[2017-11-07] MEDS: PROVENTIL INHALER 6.7 G (200 INHALATIONS) INH PRN (07:52)
[2017-11-07] MEDS: Sodium Chloride 0.9% 1,000 ML IV SCH (08:43)
[2017-11-07] MEDS: Famotidine 20 MG TAB PO SCH (08:45)
--- NOTE | 2017-11-07 08:53 | PDOC.FM ---
- Subjective Subjective: Patient is still having a cough productive of yellow sputum and had a fever overnight. He reports loose stools that started yesterday that are watery in nature. Denies any abdominal pain, N/V. He denies CP, SOB. - Objective MAR Reviewed: Yes Vital Signs & Weight: Vital Signs (12 hours) Pulse Resp Pulse Ox 11/07/17 07:52 72 16 96 11/07/17 07:51 72 16 96 Weight Admit Weight 41.186 kg Weight 41.186 kg I&O: 11/06/17 11/07/17 11/08/17 06:59 06:59 06:59 Output Total 400 Balance -400 Result Diagrams: 11/07/17 04:39 11/07/17 04:39 <Yarelis Kearns - Last Filed: 11/07/17 08:52> - Objective Vital Signs & Weight: Vital Signs (12 hours) Temp Pulse Resp BP Pulse Ox 11/07/17 10:30 97.8 F 114 H 16 108/63 96 11/07/17 08:00 98.1 F 117 H 16 11/07/17 07:52 72 16 96 11/07/17 07:51 72 16 96 11/07/17 07:15 98.1 F 117 H 16 114/68 95 Weight Admit Weight 41.186 kg Weight 41.186 kg I&O: 11/06/17 11/07/17 11/08/17 06:59 06:59 06:59 Output Total 400 Balance -400 Result Diagrams: 11/07/17 04:39 11/07/17 04:39 <Kindra Prince - Last Filed: 11/07/17 14:48> Phys Exam - Physical Examination Constitutional: NAD HEENT: moist MMs Respiratory: no wheezing, no rales, no rhonchi, clear to auscultation bilateral Cardiovascular: RRR, no significant murmur, no rub Gastrointestinal: soft, non-tender, no distention, positive bowel sounds Musculoskeletal: no edema, pulses present Neurological: non-focal, moves all 4 limbs Psychiatric: normal affect, A&O x 3 Skin: no rash, cap refill <2 seconds <Yarelis Kearns - Last Filed: 11/07/17 08:52> Dx/Plan (1) Sepsis due to pneumonia Code(s): J18.9 - PNEUMONIA, UNSPECIFIED ORGANISM; A41.9 - SEPSIS, UNSPECIFIED ORGANISM Status: Acute (2) C. difficile colitis Status: Acute (3) Cavitary lesion of lung Code(s): J98.4 - OTHER DISORDERS OF LUNG Status: Acute (4) Sarcoidosis Code(s): D86.9 - SARCOIDOSIS, UNSPECIFIED Status: Acute (5) Hemoptysis Code(s): R04.2 - HEMOPTYSIS Status: Acute (6) Cachexia Code(s): R64 - CACHEXIA Status: Chronic - Plan Plan: 1. Sepsis 2/2 PNA vs. TB vs. other infectious etiology: Patient with elevated HR , RR and leukocytosis of 17 that has now resolved. CXR shows chronic BL upper lobe opacities with inc density at RUL opacity. In addition, CTA done due to +d- dimer and per ED physician it showed upper lobe cavitation and concern for TB as well as fungal ball. Previous CT on 08/2017 showed BL cavity formation at upper lobes. Given Levaquin and Rocephin in the ED. He does have RF including immunosuppression with sarcoidosis and chronic steroids, but denies any recent travel, IV drug use, exposure to TB. Was tested negative for TB in 2014. Will r/ o TB. Dr. Kerr with ID has been consulted and is considering Jimmy Pick disease and Langerhans Histiocytosis on the differential as the patient had a full fungal/TB workup done in 2013 that was negative. -Will treat as PNA with rocephin day 2 and azithromycin day 2 -Quant gold -AFB -Serum Electrophoresis -Peripheral Smear -Dr. Kerr has been consulted with ID, appreciate recs -Dr. Malagon with Pulmonology has been consulted, appreciate recs 2. C. diff colitis Patient started having loose, watery stools yesterday. C. diff antigen and toxin positive. -PO vanc day 1 -Extended contact precautions 3. Hypokalemia: resolved after repletion -monitor 4. Sarcoidosis: followed by Dr. Mascorro of pulmonology. On chronic steroids but states he hasnt been taking them for the past month. -Cont home inhalers. 5. Cachexia: consider re-starting megace as he has lost about 15lbs over the past 2mo. -Consult dietitian, appreciate recs -Provide dietary supplementation while in the hospital. <Yarelis Kearns - Last Filed: 11/07/17 08:52> Attending Addendum - Attending Addendum Date/Time: 11/07/17 4080 I personally evaluated the patient and discussed the management with Dr. Kearns on 11/07/17. I agree with the History, Examination, Assessment and Plan documented above with any addition or exceptions noted below. Patient with CAP, C Diff, hx of sarcoidosis, and unexplained cavitary lung lesions as well as splenic lesions. Pulm and ID consulted. Uncertain etiology of new findings. Does not appear to be infectious, workup for other causes in progress. Patient very anxious and concerned about what is going on. Reviewed all of the findings with him, as well as what is currently known, and what needs to be determined, as well as the plan going forward. <Kindra Prince - Last Filed: 11/07/17 14:48>
[2017-11-07] MEDS: Vancomycin HCl 25 MG/ML Oral PO SCH ×2 (12:45→19:31)
--- NOTE | 2017-11-07 13:36 | CON ---
DATE OF CONSULTATION: 11/07/2017 SERVICE: Pulmonary Medicine. REASON FOR CONSULTATION: Cavitary lesions of the lung. HISTORY OF PRESENT ILLNESS: The patient is a 42-year-old -Serbian male with past medical history significant for possible sarcoidosis. He was in his usual state of health until about 3 weeks ago. He got the flu. He was getting over that just fine, but then started developing increasing cough, congestion, sputum production. He had some febrile illness. He presented to the emergency department and he had bilateral infiltrates in the upper lobes. He has had longstanding disease in this area previously. He was diagnosed with sarcoidosis at one point and treated as such. That being said, he has not had much progression of disease over the past several years. There was concern for tuberculosis but this has been worked up previously. Either way, he is on isolation precautions appropriately at this time while we await some sputum to come back. Over the last 24 hours, the patient has had significant improvement in symptoms and indicates he is feeling much improved with his antibiotics. He was having some diarrhea. C. diff antigen and toxin was sent which was abnormal. This prompted initiation of vancomycin today and we obviously have not seen any results of that yet. PAST MEDICAL HISTORY: 1. Bronchiectasis. 2. Bullous emphysema, predominantly in the bilateral upper lobes. 3. 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 PAST SURGICAL HISTORY: None. ALLERGIES: No known drug allergies. MEDICATIONS: Lists of inpatient medications were reviewed. A couple of small updates were made. FAMILY HISTORY: Noncontributory. SOCIAL HISTORY: Negative for alcohol, tobacco or significant illicit drug use. He worked for 6 months home in a [employer]. He also worked for [employer] company, scraping chemicals off the ground. He has a remote history of smoking , but this was small. Otherwise, he has no exposure to chemicals, dust, asbestos or tuberculosis. REVIEW OF SYSTEMS: General, head, ears, eyes, nose, throat, cardiovascular, respiratory, GI, , musculoskeletal, neurologic and skin is negative except as mentioned in the HPI. PHYSICAL EXAMINATION: VITAL SIGNS: Afebrile currently with T-max of 100.6, pulse 114, blood pressure 108/63, respirations 16, saturation 96% on room air. GENERAL: The patient is awake, alert, and in no apparent distress. LUNGS: Decent air entry. There is no prolonged expiratory phase, wheezing, rhonchi or crackles. HEART: Normal rate, regular. ABDOMEN: Soft, nontender, and nondistended. Bowel sounds are positive. MUSCULOSKELETAL: No cyanosis or clubbing. There is no pitting in the bilateral lower extremities. NEUROLOGIC: Grossly nonfocal. LABORATORY DATA: WBC 9.7 and beautifully down trending, hemoglobin 10.5, platelets 407,000. Neutrophil count is improving to 66%. D-dimer 2.3. Basic metabolic profile is essentially unremarkable. Lactate was negative. BNP was below assay limit of normal. Troponin is negative. TSH is unremarkable. Urinalysis is unremarkable. Digoxin level is below the assay limits of normal. HIV, urine and strep is negative. Lipase 4, procalcitonin is 0.15. C. diff antigen and toxin are positive. Influenza is negative. Blood cultures x2 are unremarkable. IMAGIN. Osseous bone survey demonstrates no acute abnormalities. 2. CT of the abdomen and pelvis demonstrates cystic lesions of the spleen and hepatic lymph nodes. These could be consistent with splenic microabscesses versus tuberculosis. Sarcoidosis could have a similar appearance. 3. CTA of the chest demonstrates bullous emphysematous changes in the bilateral upper lobes, bronchiectasis, infiltrates and areas that have the appearance of fungal balls. There is a little thickening to the interstitium throughout bilateral lung callaway either way. ASSESSMENT: 1. Sepsis. 2. Community-acquired pneumonia. 3. Clostridium difficile colitis. 4. Bronchiectasis. 5. Apical cavitary lung disease with inclusion of possible fungal balls. 6. Mild emphysema in other areas of healthier lung. PLAN: We will continue our empiric antibiotics. Multiple laboratories will be added. Previously, ANCA panel, tuberculosis, and aspergillosis workup were unremarkable. We will add rheumatoid factor, IgE level, hypersensitivity profile, Aspergillus antibodies once again, alpha 1 antitrypsin level, Fungitell and cystic fibrosis DNA assay. Agree with the electrophoresis. If all of this is unremarkable, tissue sample may need to be obtained. This might be in the form of bronchoscopy versus open lung versus lobectomy. Certainly, we would like to quiet down any infectious process before pursuing a surgical intervention. 70 minutes have been devoted to this patient in various activities. I personally reviewed all imaging studies and laboratory data noted within this document. For greater than fifty percent of this time, I was interacting with the patient at the bedside or coordinating care with the care team. For the remainder of the time I was immediately available to the patient in the hospital unit. AURELIANO
[2017-11-08] MEDS: Vancomycin HCl 25 MG/ML Oral PO SCH ×5 (00:08→23:46)
[2017-11-08] MEDS: Famotidine 20 MG TAB PO SCH ×3 (00:09→23:46)
[2017-11-08] MEDS: cefTRIAXone\\ROCEPHIN 1 GM, Syringe 0.4 ML in Sterile Water 9.6 ML SLOW IVP SCH (01:58)
[2017-11-08] MEDS: Azithromycin 500 MG in Sodium Chloride 0.9% 250 ML 250 ML IVPB SCH (01:58)
[2017-11-08] MEDS: Acetaminophen 325 MG TAB PO PRN ×2 (01:59→23:51)
--- NOTE | 2017-11-08 08:39 | PDOC.FM ---
- Subjective Subjective: Patient doing better this morning. He is still coughing, productive of yellow sputum, but he reports that it has improved some. He has not noticed any fevers or chills. He denies SOB or chest pain. The patient reports that his diarrhea has started to improve, he is tolerating PO and denies abdominal pain. - Objective MAR Reviewed: Yes Vital Signs & Weight: Vital Signs (12 hours) Temp Pulse Resp BP Pulse Ox 11/08/17 07:58 97.3 F L 100 16 104/66 97 11/08/17 05:00 97.9 F 76 11/08/17 00:00 98.8 F 94 18 109/62 97 Weight Admit Weight 41.186 kg Weight 41.186 kg Result Diagrams: 11/07/17 04:39 11/07/17 04:39 <Yarelis Kearns - Last Filed: 11/08/17 08:34> - Objective Vital Signs & Weight: Vital Signs (12 hours) Temp Pulse Resp BP Pulse Ox 11/08/17 11:47 98.3 F 98 16 110/64 97 11/08/17 08:00 97.3 F L 100 16 11/08/17 07:58 97.3 F L 100 16 104/66 97 11/08/17 05:00 97.9 F 76 Weight Admit Weight 41.186 kg Weight 41.186 kg I&O: 11/07/17 11/08/17 11/09/17 06:59 06:59 06:59 Output Total 375 Balance -375 Result Diagrams: 11/07/17 04:39 11/07/17 04:39 <Kindra Prince - Last Filed: 11/08/17 14:17> Phys Exam - Physical Examination Constitutional: NAD cachectic HEENT: moist MMs Respiratory: no wheezing, no rales, no rhonchi, clear to auscultation bilateral Cardiovascular: RRR, no significant murmur, no rub Gastrointestinal: soft, non-tender, no distention, positive bowel sounds Musculoskeletal: no edema, pulses present Neurological: non-focal, moves all 4 limbs Psychiatric: normal affect, A&O x 3 <Yarelis Kearns - Last Filed: 11/08/17 08:34> Dx/Plan (1) Sepsis due to pneumonia Code(s): J18.9 - PNEUMONIA, UNSPECIFIED ORGANISM; A41.9 - SEPSIS, UNSPECIFIED ORGANISM Status: Acute (2) C. difficile colitis Status: Acute (3) Cavitary lesion of lung Code(s): J98.4 - OTHER DISORDERS OF LUNG Status: Acute (4) Sarcoidosis Code(s): D86.9 - SARCOIDOSIS, UNSPECIFIED Status: Acute (5) Hemoptysis Code(s): R04.2 - HEMOPTYSIS Status: Acute (6) Cachexia Code(s): R64 - CACHEXIA Status: Chronic - Plan Plan: 1. Sepsis 2/2 PNA vs. TB vs. other infectious etiology: Patient with elevated HR , RR and leukocytosis of 17 that has now resolved. CXR shows chronic BL upper lobe opacities with inc density at RUL opacity. In addition, CTA done due to +d- dimer and per ED physician it showed upper lobe cavitation and concern for TB as well as fungal ball. Previous CT on 08/2017 showed BL cavity formation at upper lobes. Given Levaquin and Rocephin in the ED. He does have RF including immunosuppression with sarcoidosis and chronic steroids, but denies any recent travel, IV drug use, exposure to TB. Was tested negative for TB in 2014. Will r/ o TB. Dr. Kerr with ID has been consulted and is considering Jimmy Pick disease and Langerhans Histiocytosis on the differential as the patient had a full fungal/TB workup done in [address] Malagon has been consulted and would like to consider possible bronch later this week if nothing is discovered in the workup. AFB smear is negative, but culture is still pending. -Will treat as PNA with rocephin day 3 and azithromycin day 3 - patient improving symptomatically on abx -Quant gold, AFB -Alpha 1 antitrypsin -Fungitell -CF DNA -Aspergillus -RF -Hypersensitivity Pneumo -Serum Electrophoresis -Dr. Kerr has been consulted with ID, appreciate recs -Dr. Malagon with Pulmonology has been consulted, appreciate recs 2. C. diff colitis Patient started having loose, watery stools on 11/06. C. diff antigen and toxin positive. Symptomatically improving at this time. -PO vanc day 2 -Extended contact precautions 3. Hypokalemia: resolved after repletion -monitor 4. Sarcoidosis: followed by Dr. Mascorro of pulmonology. On chronic steroids but states he hasnt been taking them for the past month. -Cont home inhalers. -Dr. Malagon with Pulm has been consulted, appreciate recs 5. Cachexia: consider re-starting megace as he has lost about 15lbs over the past 2mo. -Consult dietitian, appreciate recs -Provide dietary supplementation while in the hospital. <Yarelis Kearns - Last Filed: 11/08/17 08:34> Attending Addendum - Attending Addendum Date/Time: 11/08/17 9234 I personally evaluated the patient and discussed the management with Dr. Kearns on 11/08/17. I agree with the History, Examination, Assessment and Plan documented above with any addition or exceptions noted below. Continue workup for lung, liver, spleen lesions as per Dr. Malagon. CAP continues to improve clinically, not hypoxic and SOB/cough resolving. C Diff diarrhea resolving with PO Vanc. Continue abx, may transition to PO abx for CAP tomorrow. Patient tearful and and anxious about his health. He is afraid of dying. Discussed anxiety treatment, patient will consider. Would benefit from SSRI. <Kindra Prince - Last Filed: 11/08/17 14:17>
[2017-11-08] MEDS: PROVENTIL INHALER 6.7 G (200 INHALATIONS) INH PRN (08:51)
[2017-11-08] MEDS: Mometasone/Formoterol 120 PUFF INHALER INH PRN (08:51)
[2017-11-08] MEDS: Sodium Chloride 0.65% Nasal 44 ML BOT EA NARE PRN (13:35)
[2017-11-09] MEDS: cefTRIAXone\\ROCEPHIN 1 GM, Syringe 0.4 ML in Sterile Water 9.6 ML SLOW IVP SCH (02:03)
[2017-11-09] MEDS: Azithromycin 500 MG in Sodium Chloride 0.9% 250 ML 250 ML IVPB SCH (03:13)
[2017-11-09] MEDS: Vancomycin HCl 25 MG/ML Oral PO SCH ×3 (06:10→19:52)
[2017-11-09] MEDS: Mometasone/Formoterol 120 PUFF INHALER INH PRN (07:40)
--- NOTE | 2017-11-09 08:02 | PDOC.FM ---
- Subjective Subjective: Patient reports that he continues to feel better today. His cough is improving although he still has a significant cough productive of yellow sputum. He reports that his diarrhea is improving and he only had 3 watery stools yesterday. He denies abdominal pain and is able to tolerate PO. He reports continued anxiety particularly with regards to his disease process. He has a lot of fear associated with this and anxiety about what is going to happen to him. He reports intrusive thoughts that he is unable to get rid of and reports that he is worried almost every day. He sometimes will have palpitations and his heart will race when he gets anxious. He has never been on a medicine for anxiety, but he was on a medicine to help his appetite (he isn't sure what it was called) and it made him feel crazy. He has never been to therapy/ counseling. - Objective MAR Reviewed: Yes Vital Signs & Weight: Vital Signs (12 hours) Temp Pulse Resp BP Pulse Ox 11/09/17 03:07 97.9 F 98 20 120/77 96 11/08/17 20:00 98.7 F 106 H 20 Weight Admit Weight 41.186 kg Weight 40.007 kg I&O: 11/08/17 11/09/17 11/10/17 06:59 06:59 06:59 Intake Total 1020 Output Total 1175 Balance -155 Result Diagrams: 11/07/17 04:39 11/07/17 04:39 <Yarelis Kearns - Last Filed: 11/09/17 07:50> - Objective Vital Signs & Weight: Vital Signs (12 hours) Temp Pulse Resp BP Pulse Ox 11/09/17 08:00 97.9 F 98 20 98 11/09/17 03:07 97.9 F 98 20 120/77 96 Weight Admit Weight 41.186 kg Weight 40.234 kg I&O: 11/08/17 11/09/17 11/10/17 06:59 06:59 06:59 Intake Total 1020 Output Total 1175 Balance -155 Result Diagrams: 11/07/17 04:39 11/07/17 04:39 <Kindra Prince - Last Filed: 11/09/17 12:21> Phys Exam - Physical Examination Constitutional: NAD cachectic HEENT: moist MMs Respiratory: no wheezing, no rales, no rhonchi, clear to auscultation bilateral Cardiovascular: RRR, no significant murmur, no rub Gastrointestinal: soft, non-tender, no distention, positive bowel sounds Musculoskeletal: no edema, pulses present Neurological: non-focal, moves all 4 limbs Psychiatric: A&O x 3 Deviation from normal: anxious Skin: no rash, cap refill <2 seconds <Yarelis Kearns - Last Filed: 11/09/17 07:50> Dx/Plan (1) Sepsis due to pneumonia Code(s): J18.9 - PNEUMONIA, UNSPECIFIED ORGANISM; A41.9 - SEPSIS, UNSPECIFIED ORGANISM Status: Acute (2) C. difficile colitis Status: Acute (3) Cavitary lesion of lung Code(s): J98.4 - OTHER DISORDERS OF LUNG Status: Acute (4) Sarcoidosis Code(s): D86.9 - SARCOIDOSIS, UNSPECIFIED Status: Acute (5) Hemoptysis Code(s): R04.2 - HEMOPTYSIS Status: Acute (6) Cachexia Code(s): R64 - CACHEXIA Status: Chronic (7) Anxiety about health Code(s): F41.8 - OTHER SPECIFIED ANXIETY DISORDERS Status: Acute - Plan Plan: 1. Sepsis 2/2 CAP vs. TB Patient with elevated HR, RR and leukocytosis of 17 that has now resolved. CXR shows chronic BL upper lobe opacities with inc density at RUL opacity. In addition, CTA done due to +d-dimer and per ED physician it showed upper lobe cavitation and concern for TB as well as fungal ball. Previous CT on 08/2017 showed BL cavity formation at upper lobes. Given Levaquin and Rocephin in the ED. He does have RF including immunosuppression with sarcoidosis and chronic steroids, but denies any recent travel, IV drug use, exposure to TB. Was tested negative for TB in 2014. Will r/o TB. Dr. Kerr with ID has been consulted and is considering Jimmy Pick disease and Langerhans Histiocytosis on the differential as the patient had a full fungal/TB workup done in [address] Malagon has been consulted and would like to consider possible bronch later this week if nothing is discovered in the workup. AFB smear is negative, but culture is still pending. -Will treat as PNA with rocephin day 4 and azithromycin day 4 - patient improving symptomatically on abx -Quant gold, AFB -Alpha 1 antitrypsin -Fungitell -CF DNA -Aspergillus -RF -Hypersensitivity Pneumo -Serum Electrophoresis -Dr. Kerr has been consulted with ID, appreciate recs -Dr. Malagon with Pulmonology has been consulted, appreciate recs 2. C. diff colitis Patient started having loose, watery stools on 11/06. C. diff antigen and toxin positive. Symptomatically improving at this time. -PO vanc day 3 -Extended contact precautions 3. Hypokalemia: resolved after repletion -monitor 4. Sarcoidosis: followed by Dr. Mascorro of pulmonology. On chronic steroids but states he hasn't been taking them for the past month. -Cont home inhalers. -Dr. Malagon with Pulm has been consulted, appreciate recs 5. Cachexia: consider re-starting megace as he has lost about 15lbs over the past 2mo. -Consult dietitian, appreciate recs -Provide dietary supplementation while in the hospital. 6. Anxiety This is related predominately to the patient's health. -Recommended outpatient therapy -Recommended starting on an SSRI, the patient would like to think about this, will f/u pending the patient's response <Yarelis Kearns - Last Filed: 11/09/17 07:50> Attending Addendum - Attending Addendum Date/Time: 11/09/17 1219 I personally evaluated the patient and discussed the management with Dr. Kearns on 11/09/17. I agree with the History, Examination, Assessment and Plan documented above with any addition or exceptions noted below. Case d/w Dr. Malagon at length. CAP resolving on Rocephin, will discharge home with 4 weeks of Omnicef to ensure full treatment of bullitis. C Diff symptoms resolved, will discharge home to finish course of PO Vanc. Will start SSRI for anxiety per discussions with patient today. Close follow up at [facility], with follow up with Dr. Malagon in 4 weeks to review full results of workup and consider biopsy. <Kindra Prince - Last Filed: 11/09/17 12:21>
[2017-11-09] MEDS ORDERED: Escitalopram Oxalate 10 mg Tablet PO SCH (09:00)
[2017-11-09] MEDS: Famotidine 20 MG TAB PO SCH ×2 (09:12→19:52)
[2017-11-09 09:20] LABS: A/G Ratio 0.7 (0.7-1.7); Albumin 2.9 g/dL (2.9-4.4); Alpha 1 0.6 g/dL (0.0-0.4); Alpha 2 0.9 g/dL (0.4-1.0); Beta 1.4 g/dL (0.7-1.3); Gamma 1.3 g/dL (0.4-1.8); Globulin, Total 4.2 g/dL (2.2-3.9); M-Spike 0.4 g/dL (Not Observed)
[2017-11-09] MEDS ORDERED: Chloraseptic Spray 180 ml Bottle PO PRN (10:48)
[2017-11-09 12:10] VITALS: BMI 15.2
[2017-11-09 12:24] LABS: CCP IgG Antibody 1.3 EliAU/mL (<7 Negative); EliA RAS New Method **** NEW METHOD ****; Rheumatoid Factor IgA Antibody 7.9 IU/mL (<14 Negative); Rheumatoid Factor IgM Antibody 0.6 IU/mL (<3.5 Negative)
[2017-11-09 15:23] LABS: Alpha-1-Antitrypsin 256 mg/dL (90-200)
[2017-11-09 17:02] VITALS: BP 130/70; TEMP 98.4
--- NOTE | 2017-11-09 17:03 | PRG ---
DATE OF SERVICE: 11/09/2017 SERVICE: Pulmonary Medicine. INTERVAL HISTORY: The patient is doing fine from a cardiovascular and respiratory standpoint. He de nies any current fevers, chills, nausea, vomiting or chest discomfort. His breathing is normal. He is return to his usual state of health. He remains fairly anxious. Otherwise, there has been no int erval change to his condition. PHYSICAL EXAMINATION: VITAL SIGNS: Afebrile, pulse 98, blood pressure 120/77, respirations 20, saturation 98% on room air. GENERAL: The patient is awake and alert, in no apparent distress. LUNGS: Excellent air entry with no prolonged expiratory phase or wheezing. HEART: Normal rate, regular. ABDOMEN: Soft, nontender, nondistended. Bowel sounds are positive. MUSCULOSKELETAL: No cyanosis or clubbing. There is no pitting in the bilateral lower extremities. NEUROLOGIC: Grossly nonfocal. LABORATORY DATA: WBC 9.7, hemoglobin 10.5, platelets 407,000. CCP is negative. Rheumatoid factor i s unremarkable. Albumin and total protein fall within the normal limits. Strep antigen is negative. Urine Legionella antigens are unremarkable. HIV is nonreactive. Multiple serologies are otherwise pending. Acid-fast bacilli smears x3 are completely unremarkable. ASSESSMENT: 1. Sepsis, resolving. 2. Community-acquired pneumonia/bullitis. 3. Clostridium difficile colitis. 4. Bronchiectasis with acute exacerbation. 5. Atypical cavitary lung disease with inclusion of possible fungal balls, possibly longstanding. 6. Minimal emphysema and other areas of healthier lung. PLAN: Multiple serologies are currently pending. At this point, I am not interested in pursuing bro nchoscopy. I would prefer to give him a complete course of antibiotics over a period of 3-4 weeks. He will need to return to clinic with Dr. Mascorro or myself in 1 month with a preclinic chest x-ray. We will follow up all of his serologies as well as his cystic fibrosis and alpha 1 antitrypsin tests. If these things are unremarkable, the patient may need to undergo bronchoscopy. Lobectomy may also n eed to be considered at some point in the future, particularly if the patient is having recurrent exa cerbations. Physiotherapy will be discussed at followup appointment. From my perspective, the patie nt is stable for transition out of the hospital.
[2017-11-09] MEDS: Sodium Chloride 0.65% Nasal 44 ML BOT EA NARE PRN (20:02)
[2017-11-09] MEDS: Acetaminophen 325 MG TAB PO PRN (20:02)
--- NOTE | 2017-11-11 01:28 | DIS-2 ---
DATE OF ADMISSION: 11/06/2017 DATE OF DISCHARGE: 11/09/2017 ADMITTING RESIDENT: Dr. Isaak Segovia. DISCHARGE RESIDENT: Dr. Yarelis Kearns. ADMITTING ATTENDING: Babak Patel. DISCHARGE ATTENDING: Dr. Kindra Prince. CONSULTATIONS: Dr. Kerr with Infectious Disease, and Dr. Malagon with Pulmonology. PROCEDURES: None. IMAGIN. Chest x-ray showed bilateral upper lobe opacities consistent with chronic changes previously described. There may be an increased density surrounding the right upper lung opacity, which could represent superimposed inflammatory infiltrate. 2. CTA chest thorax showed within a right upper lobe cavitation, there is a soft tissue nodule which may represent a mycetoma in the left upper lobe cavitation. There is dilatation of the pulmonary arterial system suggesting pulmonary arterial hypertension. There is confluence of mildly prominent subcarinal lymph nodes. There is also mild circumferential wall thickening of the esophagus. 3. Abdomen and pelvis CT showed numerous hypodensities of the spleen with multiple hyperdense levi hepatis lymph nodes. 4. Bone osseous survey showed no acute osseous abnormalities. PRIMARY DIAGNOSES: 1. Sepsis secondary to community-acquired pneumonia. 2. Clostridium difficile colitis. 3. Hypokalemia. 4. Cachexia. 5. Anxiety. 6. 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 DISCHARGE MEDICATIONS: 1. ProAir HFA 1 puff inhaled q.4 hours p.r.n. shortness of breath or wheezing. 2. Cefdinir 300 mg p.o. q.12 hours, dispense #60. Continue for 1 month. 3. Lexapro 10 mg p.o. daily. 4. DuoNeb 3 mL neb q.4 hours p.r.n. shortness of breath or wheezing. 5. Dulera 1 puff inhaled q.4 hours p.r.n. shortness of breath or wheezing. 6. Vancomycin 125 mg p.o. q.8 hours for 8 days. DISCONTINUED MEDICATIONS: None. HISTORY OF PRESENT ILLNESS AND HOSPITAL COURSE: This is a 42-year-old male with a past medical history of bullous lung disease and a history of multiple workups including a very extensive workup in 2013, who presented to the emergency room for sepsis, which was found to be due to community-acquired pneumonia on top of his chronic lung disease. The patient initially had a white blood cell count of 17.0 and 84% neutrophils. The patient was treated with fluids and azithromycin and Rocephin and thus white count down trended to 13.2 and then 9.7. The patient never had an elevated lactic acid. The patient had concern initially based on his CT scan for TB versus fungal source. On his lung scan, he had been told in the past, he had sarcoidosis; however, Dr. Malagon with Pulmonology was consulted and reported that his history and imaging did not appear consistent with this. The patient had a QuantiFERON Gold done that was negative and his acid fast bacilli sputum also came back negative. The patient's urine strep pneumo antigen was negative as well as his legionella. The patient's HIV came back negative. He has a full fungal panel pending still. He initially did have a mild hypokalemia at 3.3, this resolved with replacement of potassium. On his first full day of hospitalization, the patient started developing diarrhea, several loose watery stools and was tested for C. diff and was reported positive. This was a positive result for both antigen and toxin. The patient was initiated on oral vancomycin treatment and Protonix and contact precautions. Throughout his hospitalization, the patient was also on airborne precautions with concern for TB until his TB testing came back negative. The patient clinically continued to improve on treatment of Rocephin and azithromycin and his diarrhea improved as well on the vancomycin. The patient had significant anxiety associated with his illness and the uncertainty associated with the underlying chronic disease and so the patient was tearful in several exams. It was discussed with the patient the idea of starting medication versus initiating outpatient counseling and the patient has already been set up with counseling through PCP at [facility]. The patient was started on a medication, an SSRI, but he was too scared to take it by his PCP back in August, so he has thrown it away, so I discussed with him the risks and benefits extensively and he decided that he wanted to try a different SSRI, so I initiated treatment with citalopram. The patient was very thankful for the workup that was done, but also the plan moving forward. Dr. Malagon will continue to follow the patient to continue work up his disease outpatient once his acute illness is fully resolved, he may receive a bronchoscopy with biopsy versus some other form of biopsy to determine the exact cause of his underlying lung disease, as well as the lesions found on his spleen. The patient will also follow up with me at [facility] and I will continue to coordinate his care between Pulmonology, Psychiatry and myself. DISPOSITION: The patient was discharged home in stable condition. DISCHARGE INSTRUCTIONS: 1. Location: Home. 2. Diet: No restrictions. Add Ensure Enlive supplements with each meal. 3. Activity: As tolerated. 4. Follow up with Dr. Kearns at [facility] within 1-[address] Malagon within 2-4 weeks. AURELIANO
--- NOTE | 2017-11-11 15:18 | EKG ---
Test Reason : RESPIRATORY Blood Pressure : / mmHG Vent. Rate : 111 BPM Atrial Rate : 111 BPM P-R Int : 122 ms QRS Dur : 072 ms QT Int : 322 ms P-R-T Axes : 078 101 056 degrees QTc Int : 437 ms Sinus tachycardia Possible Left atrial enlargement Rightward axis Borderline ECG Confirmed by PRITESH STACY ([id number]), map editor KAYLA SANTOS ([id number]) on 11/11/2017 3:18:13 PM Referred By: Confirmed By:PRITESH STACY
[2017-11-12 14:10] LABS: A. flavus Negative (Neg:<1:1); A. fumigatus Negative (Neg:<1:1); A. niger Negative (Neg:<1:1)
[2017-11-13 12:14] LABS: Aspergillus fumigatus Negative (Negative); Aureobasidium pullalans IgG Negative (Negative); Micropolyspora faeni Negative (Negative); Pigeon Droppings IgG Negative (Negative); T sacchari Negative (Negative); T vulgaris Negative (Negative)
== END 2017-11-09 21:00 | disposition home or self-care (01) | DRG 871 ==
LOC: ERS 20:15 → 2NO 11-06 02:24 → 2SW 11-06 04:43
PROVIDERS: ADMIT Emergency Medicine; ATTEND Emergency Medicine
DX: A41.9 Sepsis, unspecified organism (principal); J18.9 Pneumonia, unspecified organism; A04.72 Enterocolitis due to Clostridium difficile, not specified as recurrent; R64 Cachexia; J47.1 Bronchiectasis with (acute) exacerbation; J43.9 Emphysema, unspecified; Q44.6 Cystic disease of liver; D73.4 Cyst of spleen; B48.8 Other specified mycoses; Z68.1 Body mass index [BMI] 19.9 or less, adult; R04.2 Hemoptysis; E87.6 Hypokalemia; J98.4 Other disorders of lung; Z87.891 Personal history of nicotine dependence; F41.8 Other specified anxiety disorders; D86.0 Sarcoidosis of lung; Z79.899 Other long term (current) drug therapy; Z79.52 Long term (current) use of systemic steroids
CPT/HCPCS: 36415; 71045; 71275; 74177; 77075; 80048; 80053; 80162; 81003; 81220; 82103; 82274; 82550; 82553; 82785; 83520; 83605; 83690; 83735; 83880; 84145; 84165; 84436; 84439; 84443; 84481; 84484; 85007; 85025; 85027; 85060; 85379; 86200; 86331; 86480; 86602; 86606; 86671; 87040; 87116; 87206; 87324; 87389; 87449; 87493; 87804; 87899; 93005; 96361; 96365; 96366; 96375; A4216; J0456; J0696; J1956; J2060; J7050

== ENCOUNTER 2022-09-27 06:59 | Emergency (ER) | payer MEDICARE ==
[2022-09-27] MEDS ORDERED: Ondansetron PF 4 MG/2 ML Vial ONE (07:21)
[2022-09-27 08:01] LABS: #Lymphocytes 0.9 thou/uL (1.20-3.40); #Monocytes 1.1 thou/uL (0.11-0.59); #Neutrophils 7.6 thou/uL (1.40-6.50); %Basophils 0.1 % (0.0-1.0); %Eosinophils 0.1 % (0.0-10.0); %Lymphocytes 9.8 % (21.0-51.0); %Monocytes 11.1 % (0.0-10.0); %Neutrophils 78.8 % (42.0-75.0); Hemoglobin 15.4 g/dL (14.0-18.0); Mean Corpuscular HGB CONC 34.3 g/dL (32.0-36.0); Mean Corpuscular Hemoglobin 27.8 pg (27.0-31.0); Mean Corpuscular Volume 81.2 fl (78.0-98.0); Mean Platelet Volume 8.4 fL (7.4-10.4); Platelet Count 191 10x3/uL (130-400); RBC Distribution Width 13.3 % (11.5-14.5); Red Blood Cell (RBC) Count 5.52 mill/uL (4.70-6.10); White Blood Cell (WBC) Count 9.6 10x3/uL (4.8-10.8)
[2022-09-27 08:21] LABS: ALT (SGPT) 27 U/L (8-55); AST (SGOT) 37 U/L (5-34); Alkaline Phosphatase 98 U/L (40-110); Anion Gap 17 mmol/L (10-20); BUN (Urea Nitrogen) 11 mg/dL (8.9-20.6); Bilirubin, Total 0.5 mg/dL (0.2-1.2); Calc. Creatinine Clearance 0 mL/min (70-130); Calcium 8.2 mg/dL (7.8-10.44); Carbon Dioxide 21 mmol/L (22-29); Chloride 102 mmol/L (98-107); Estimated GFR 82; Globulin 3.3 g/dL (2.4-3.5); Glucose 96 mg/dL (70-105); Potassium 3.9 mmol/L (3.5-5.1); Protein, Total 7.3 g/dL (6.0-8.3); Sodium 136 mmol/L (136-145)
[2022-09-27 08:58] LABS: SARS-CoV-2 NAA Rapid Test DETECTED (NotDetected)
== END 2022-09-27 09:04 | disposition home or self-care (01) ==
LOC: ERS 06:59
DX: U07.1 COVID-19 (principal); J12.82 Pneumonia due to coronavirus disease 2019; J45.909 Unspecified asthma, uncomplicated; Z79.899 Other long term (current) drug therapy
CPT/HCPCS: 0240U; 70450; 71045; 80053; 83605; 83880; 84484; 85025; 87040; 87149 ×2; 93005; 36415; 96374; J2405

== ENCOUNTER 2023-02-23 05:36 | Emergency (ER) | payer MEDICARE, OTHER ==
[2023-02-23 06:22] LABS: #Basophils 0.1 thou/uL (0.0-0.2); #Eosinphils 0.3 thou/uL (0.0-0.7); #Monocytes 1.2 thou/uL (0.11-0.59); #Neutrophils 7.5 thou/uL (1.40-6.50); %Basophils 1.1 % (0.0-1.0); %Lymphocytes 19.5 % (21.0-51.0); %Monocytes 10.6 % (0.0-10.0); %Neutrophils 65.5 % (42.0-75.0); Hemoglobin 15.1 g/dL (14.0-18.0); Mean Corpuscular HGB CONC 35.4 g/dL (32.0-36.0); Mean Corpuscular Hemoglobin 27.6 pg (27.0-31.0); Mean Corpuscular Volume 77.9 fl (78.0-98.0); Mean Platelet Volume 10.5 fL (7.4-10.4); Platelet Count 283 10x3/uL (130-400); RBC Distribution Width 14.5 % (11.5-14.5); Red Blood Cell (RBC) Count 5.47 mill/uL (4.70-6.10); White Blood Cell (WBC) Count 11.5 10x3/uL (4.8-10.8)
[2023-02-23 06:42] LABS: ALT (SGPT) 11 U/L (8-55); AST (SGOT) 18 U/L (5-34); Albumin 4.4 g/dL (3.5-5.0); Alkaline Phosphatase 89 U/L (40-110); Anion Gap 14 mmol/L (10-20); BUN (Urea Nitrogen) 12 mg/dL (8.9-20.6); Bilirubin, Total 1.6 mg/dL (0.2-1.2); Calc. Creatinine Clearance 0 mL/min (70-130); Calcium 9.8 mg/dL (7.8-10.44); Carbon Dioxide 23 mmol/L (22-29); Chloride 103 mmol/L (98-107); Estimated GFR 70; Globulin 3.3 g/dL (2.4-3.5); Glucose 112 mg/dL (70-105); Potassium 3.3 mmol/L (3.5-5.1); Protein, Total 7.7 g/dL (6.0-8.3); Sodium 137 mmol/L (136-145)
[2023-02-23] MEDS ORDERED: Iopamidol-370 76% 500 ML MDV (1 ML CHARGE) ONE (15:27)
== END 2023-02-23 08:27 | disposition home or self-care (01) ==
LOC: ERS 05:36
DX: R04.2 Hemoptysis (principal); D86.9 Sarcoidosis, unspecified
CPT/HCPCS: 71275; 80053; 83880; 84484; 85025; 93005; 96360; Q9967

== ENCOUNTER 2024-04-01 16:00 | Outpatient (CLI) | payer MEDICARE, OTHER | END 2024-04-01 16:01 | disposition home or self-care (01) | LOC: BICRAD 16:00 | PROVIDERS: ATTEND Nurse Practitioner Family | DX: R09.89 Other specified symptoms and signs involving the circulatory and respiratory systems (principal); R91.8 Other nonspecific abnormal finding of lung field | CPT/HCPCS: 71046 ==